=== PATIENT | female | born 1985 | race Caucasian/White ===

== ENCOUNTER 2022-08-25 18:45 | Emergency (ER) | payer BC, MEDICAID, SELFPAY ==
[2022-08-25 19:32] VITALS: BP 121/105; PULSE 70; RESP 14; TEMP 37.3; O2SAT 100
--- NOTE | 2022-08-25 20:26 | ED.GENADULT ---
HPI - General Adult General Chief complaint: Urogenital-Female Stated complaint: Vaginal Problem Source: patient Mode of arrival: ambulatory Limitations: no limitations History of Present Illness HPI narrative: Patient presents for evaluation of vaginal itching for the last 3-4 weeks. She is concerned that she may have an STI. She states while she was to her ex- last year, he informed her he tested positive for trich. It sounds like she had some STI testing at that time but does not believe that she received testing for trich. In the spring she had a trich test which was positive and she was treated with flagyl at that time. She denies any fever, chills, nausea, vomiting, abdominal pain, vaginal bleeding/discharge. States her LMP was about 25 days ago. She has a hx of irregular menstruation following use of spironolactone. She is no longer on the medication. She is not on contraception. She has a new male sexual partner since the time of her divorce. They do not use condoms regularly. He is asymptomatic. She states she has a hx of HPV. Related Data Home Medications Medication Instructions Recorded Confirmed No Home Medications 08/25/22 08/25/22 Allergies Allergy/AdvReac Type Severity Reaction Status Date / Time doxycycline Allergy Unknown enlarged Verified 08/25/22 19:22 lymph nodes, rash Review of Systems Review of Systems: CONSTITUTIONAL: Denies fever, chills, or sweats. EYES: Denies visual changes, redness, or discharge. ENT: Denies rhinorrhea, congestion, sore throat, or otalgia. CARDIOVASCULAR: Denies chest pain, palpitations, or edema. RESPIRATORY: Denies cough or dyspnea. GASTROINTESTINAL: Denies abdominal pain, nausea, vomiting, or diarrhea. GENITOURINARY: Reports vaginal itching. Denies dysuria or hematuria. SKIN: Denies rash or itching. MUSCULOSKELETAL: Denies back pain, joint pain, or myalgia. NEUROLOGIC: Denies headache, numbness, dizziness, or weakness. PSYCHIATRIC: Denies anxiety or depression. [facility] Past Medical History Medical History (Updated 08/25/22 @ 21:07 by Piter Alan, CHERIE, ) HPV (human papilloma virus) anogenital infection Surgical History Surgical History No pertinent past surgical history Family History Family History Mother Family history non-contributory Social History Social History (Updated 08/25/22 @ 20:32 by Piter Alan [facility], ) Substance use: never Gender identity (if verbalized by the patient): Female Sexual Orientation (if Verbalized by the Patient): Straight or Heterosexual Spiritual care concerns: No Exam Narrative: GENERAL: Well-appearing, well-nourished, and in no acute distress. HEAD: Normocephalic, atraumatic. EYES: PERRLA and EOMI. ENT: Nares clear, no rhinorrhea or epistaxis. Mucous membranes moist. Oropharynx without tonsillar hypertrophy exudate or other lesions. Bilateral TMs pearly thomas nonbulging NECK: Supple. No adenopathy or masses. No carotid bruits or JVD CHEST: Clear to auscultation. No respiratory distress. No wheezes rales or rhonchi HEART: Regular rate and rhythm. No murmur heard. Normal peripheral pulses. ABDOMEN: Soft, nontender, nondistended, normal active bowel sounds. EXTREMITIES: Normal range of motion. No edema. VAGINAL: Exam performed in company of [employer]. No external genital lesions. No adnexal tenderness. No cervical motion tenderness. There are several scattered raised lesions to mucosa of vaginal region. There is a small amount of milky white discharge in vaginal vault. SKIN: Warm, dry, no rash. NEURO: No focal deficits. Alert and oriented x3. PSYCH: Normal mood and affect. Course Course Emergency Course: This is a 37-year-old female who presented requesting STI testing. Discussed risks versus benefits of empiric treatment. P
== END 2022-08-25 21:08 | disposition home or self-care (01) ==
PROVIDERS: Emergency Provider Nurse Practitioner
DX: N76.0 Acute vaginitis (principal); Z11.3 Encounter for screening for infections with a predominantly sexual mode of transmission
CPT/HCPCS: 81003; 81025; 87070; 87086; 87255; 87491; 87591; 87661; 99204; G0463

== ENCOUNTER 2023-03-19 08:01 | Emergency (ER) | payer BC, MEDICAID, SELFPAY ==
--- NOTE | 2023-03-19 08:06 | ED.FEMALEGU ---
HPI - Female Genitourinary General Chief complaint: Urogenital-Female Stated complaint: Poss UTI Time Seen by Provider: 03/19/23 08:07 Source: patient Mode of arrival: ambulatory Limitations: no limitations History of Present Illness HPI Narrative: Patient is a 37-year-old female presents with burning with urination and vaginal itching. The itching has been present for a week, burning with urination for 2 days. History of BV and yeast infections. Patient also states she started her period today. Denies any urgency, frequency, low back pain, fever, chills, nausea, vomiting or diarrhea. Denies any new sexual partners or concern for STD. MD elicited complaint: dysuria Related Data Allergies Allergy/AdvReac Type Severity Reaction Status Date / Time doxycycline Allergy Unknown enlarged Verified 03/19/23 08:17 lymph nodes, rash Review of Systems Review of Systems: All systems reviewed & are unremarkable except as noted in HPI and below Constitutional: Constitutional: Denies chills, Denies fever(s), Denies headache(s), Denies malaise and Denies weakness Eyes: Eyes: Denies change in vision, Denies eye discharge and Denies irritation ENT: Denies otalgia, Denies headache(s), Denies nasal congestion, Denies nasal discharge, Denies sinus pain and Denies sore throat Cardiovascular: Cardiovascular: Denies chest pain, Denies edema, Denies palpitations and Denies dyspnea Respiratory: Respiratory: Denies cough and Denies dyspnea Gastrointestinal: Gastrointestinal: Denies abdominal pain, Denies diarrhea, Denies nausea and Denies vomiting Genitourinary: Genitourinary: Denies hematuria, Denies nocturia, Reports genital pruritis, Reports dysuria, Denies flank pain, Denies urinary urgency and Reports vaginal pruritus Musculoskeletal: Musculoskeletal: Denies back pain and Denies numbness Integumentary/Breasts: Skin/Breast: Denies pruritus and Denies rash Neurologic: Denies headache(s), Denies numbness and Denies weakness Psychiatric: Psychiatric: Reports no additional psychiatric complaints Endocrine: Endocrine: Denies palpitations PMFSH Past Medical History Medical History (Updated 03/19/23 @ 08:27 by Reagan Quispe APRN) HPV (human papilloma virus) anogenital infection Surgical History Surgical History No pertinent past surgical history Family History Family History Mother Family history non-contributory Social History Social History (Updated 08/25/22 @ 20:32 by CHERIE Pacheco, ) Substance use: never Gender identity (if verbalized by the patient): Female Sexual Orientation (if Verbalized by the Patient): Straight or Heterosexual Spiritual care concerns: No Comments At time of signature, agree with nursing past medical, surgical, social and family history. There is no relevant family history pertinent to the presenting complaint. Exam Const: General: cooperative, healthy appearing, comfortable, no acute distress and well nourished Nutritional Appearance: well nourished Orientation/consciousness: patient oriented x3 HENMT: Head: normocephalic and atraumatic Ears: external ears normal Face/Nose/Sinus: Normal external nose present, Normal nares present and normal facial exam Face and sinus: normal facial exam Eyes: General: appearance normal, both eyes and all related structures Pupils: Equal, round and reactive pupils present EOM: EOMs intact bilaterally Neck: Neck: normal visual inspection, full ROM and supple Chest: Chest palpation & inspection: normal inspection of the chest Resp: Effort & Inspection: normal respiratory effort and able to speak in complete sentences Cardio: Rate: regular rate Rhythm: regular rhythm GI: Inspection: normal to inspection GI Palp: No abdominal tenderness and Yes Soft to palpation : General: Yes no CVA tenderness Back/Spin
[2023-03-19 08:10] VITALS: BP 111/80; PULSE 88; RESP 14; TEMP 36.9; O2SAT 100
== END 2023-03-19 08:45 | disposition home or self-care (01) ==
PROVIDERS: Emergency Provider Nurse Practitioner Family; PCP Internal Medicine
DX: N39.0 Urinary tract infection, site not specified (principal); B37.31 Acute candidiasis of vulva and vagina
CPT/HCPCS: 81003; 87086; 99213; G0463

== ENCOUNTER 2023-04-21 08:36 | Emergency (ER) | payer BC, MEDICAID, SELFPAY ==
[2023-04-21 08:44] VITALS: BP 119/87; PULSE 68; RESP 14; TEMP 37; O2SAT 100
--- NOTE | 2023-04-21 09:26 | ED.GENADULT ---
HPI - General Adult General Chief complaint: Urogenital-Female Stated complaint: Std test Source: patient Mode of arrival: ambulatory Limitations: no limitations History of Present Illness HPI narrative: Patient presents requesting additional education regarding vaginal discharge. She indicates she tested positive for Trichomonas while she was 2 years ago. She has since . She had a foul-smelling yellow vaginal discharge at that time. After treatment she has had recurrent episodes of bacterial vaginosis and typically had white vaginal discharge during those episodes. She had a Pap smear on 04/12/2023. She was contacted on Saturday of last week and told that she had Trichomonas. She is given a prescription for Flagyl which she has taken as directed. Her OBGYN also called in prescription for Flagyl for her male sex partner. He went to [facility] to be evaluated and told her that he received his test results today, and was negative for trich. She states they are in a monogamous relationship. She is having difficulty understanding how he is negative for trich while she is positive. LMP now. No urinary symptoms, fever, chills, nausea, vomiting, abdominal pain, low back pain. She does no know if she currently has discharge as she is actively menstruating. Related Data Home Medications Medication Instructions Recorded Confirmed metronidazole 500 mg tablet 500 mg PO DIRECTED 04/21/23 04/21/23 Allergies Allergy/AdvReac Type Severity Reaction Status Date / Time doxycycline Allergy Unknown enlarged Verified 04/21/23 09:02 lymph nodes, rash Review of Systems Review of Systems: CONSTITUTIONAL: Denies fever, chills, or sweats. EYES: Denies visual changes, redness, or discharge. ENT: Denies rhinorrhea, congestion, sore throat, or otalgia. CARDIOVASCULAR: Denies chest pain, palpitations, or edema. RESPIRATORY: Denies cough or dyspnea. GASTROINTESTINAL: Denies abdominal pain, nausea, vomiting, or diarrhea. GENITOURINARY: Denies dysuria or hematuria. SKIN: Denies rash or itching. MUSCULOSKELETAL: Denies back pain, joint pain, or myalgia. NEUROLOGIC: Denies headache, numbness, dizziness, or weakness. PSYCHIATRIC: Denies anxiety or depression. [facility] Past Medical History Medical History (Updated 04/21/23 @ 09:55 by Piter Alan, [facility], ) Bacterial vaginosis HPV (human papilloma virus) anogenital infection Surgical History Surgical History No pertinent past surgical history Family History Family History Mother Family history non-contributory Social History Social History (Updated 04/21/23 @ 09:56 by CHERIE Pacheco, ) Substance use: never Living arrangements: with family Gender identity (if verbalized by the patient): Female Sexual Orientation (if Verbalized by the Patient): Straight or Heterosexual Spiritual care concerns: No Exam Narrative: GENERAL: Well-appearing, well-nourished, and in no acute distress. HEAD: Normocephalic, atraumatic. EYES: PERRLA and EOMI. ENT: Nares clear, no rhinorrhea or epistaxis. Mucous membranes moist. Oropharynx without tonsillar hypertrophy exudate or other lesions. Bilateral TMs pearly thomas nonbulging NECK: Supple. No adenopathy or masses. No carotid bruits or JVD CHEST: Clear to auscultation. No respiratory distress. No wheezes rales or rhonchi HEART: Regular rate and rhythm. No murmur heard. Normal peripheral pulses. ABDOMEN: Soft, nontender, nondistended, normal active bowel sounds. EXTREMITIES: Normal range of motion. No edema. SKIN: Warm, dry, no rash. NEURO: No focal deficits. Alert and oriented x3. PSYCH: Normal mood and affect. Course Course Emergency Course: This is a 37-year-old female who presented with questions regarding recent positive Trichomonas test. It sounds
== END 2023-04-21 09:11 | disposition home or self-care (01) ==
PROVIDERS: Emergency Provider Nurse Practitioner
DX: A59.01 Trichomonal vulvovaginitis (principal)
CPT/HCPCS: 99211; G0463

== ENCOUNTER 2023-05-07 01:45 | Day surgery (SDC) | payer OTHER, SELFPAY ==
[2023-04-26 13:43] VITALS: BMI 22.1
--- NOTE | 2023-04-26 13:44 | SUR.PREOP ---
Report to the Outpatient Waiting Room, entrance under the green pavilion located off [facility], at time _1200 on date __05/07/23 . Planned Procedure Time: _1400 . Time changes happen often and if your time is changed the preop area will call you the afternoon before. - You and your visitor will be asked to self-screen and do not enter if you have any COVID symptoms. - A mask is optional within the hospital at this time. Patients may have clear liquids (water, carbonated beverages, clear teas, apple juice) until 3 hours prior to surgery with a maximum of 20 ounces. - No food from midnight until time of surgery - Infants may have breast milk until 4 hours before surgery, formula 6 hours prior to surgery. - Children will be allowed to drink immediately following surgery. If applicable, please bring a bottle or sippy cup to assist with drinking. Juice, water, soda, and popsicles are readily available. For infants on formula, please bring formula the day of surgery. Pacifiers are allowed. Take the following medications with a SIP of water the morning of surgery: ___n/a DO NOT STOP ANY OF YOUR OTHER PRESCRIPTION MEDICATIONS PRIOR TO SURGERY ?EXCEPT THE FOLLOWING Medications to discontinue per physician ___vitamin,probiotic bring albuterol inhaler with you am of surgery Date to take last dose____05/04/23 Please no make-up, nail japanese, hairspray, perfume, deodorant, or body powder the day of surgery. No jewelry (including any body piercings) or valuables the day of surgery, leave them at home. Please take a shower or bath the night before, or the morning of, surgery with an antibacterial soap. Wear comfortable, loose fitting clothing. Children are encouraged to wear pajamas. - Jewelry must be removed prior to entering the operating room. Rings and piercings that are not removed may be cut off. - The hospital will not accept responsibility for valuables. - Please leave all valuables, including medications, at home the day of surgery. If you are going home after surgery, a licensed school bus driver/custodian must drive you home. - NO public transportation without another adult if you receive anesthesia. - We recommend that an adult stay with you for 24 hours following discharge. - We also recommend that you do not drive, make important decision, drink alcoholic beverages, or take any drugs that were not prescribed by your health care provider for at least 24 hours after your discharge time. For Pediatric surgeries, we recommend two adults accompany the child home. Follow any additional instructions given to you from your surgeon. If you or anyone in your household have experienced Covid symptoms in the past week, please notify your surgeon or the nurse liaison at the phone number below for possible testing. Telephone instructions given to ivan arboleda and asked if any additional questions and then verbalized understanding. Patient advised to call surgeon office or pre surgery nurse liaison [phone] if any additional questions.
[2023-05-07] VITALS (8 sets, daily range): BP systolic 101–143; BP diastolic 76–89; PULSE 66–93; RESP 17–21; TEMP 36.5–37.1; O2SAT 100
[2023-05-07] MEDS: LACTATED RINGERS 1,000 ML 30 ML IV CONT ×2 (10:43→14:14)
--- NOTE | 2023-05-07 12:37 | P.OP_ITS ---
Procedure Note - Detailed Date of Procedure 05/07/23 Pre-op Diagnosis micromastia Post-op Diagnosis Same Procedure Performed Bilateral augmentation mammaplasty Surgeon Adam Ruggiero MD Anesthesia General Findings Bilateral Padma Graham Soft Touch 310cc Dual plane 1 Right - REF# [id number] SN [id number] Left - REF# [id number] SN [id number] Description of Procedure She is here today for bilateral breast augmentation. Previously and again today the risks, benefits, alternatives were discussed in extensive detail. I wanted her to be very realistic about the risks involved as well as expectations. We discussed aftercare and what to monitor for. Made sure answered all of her questions to her satisfaction today and consent was obtained. Marked in the preoperative holding area with their verification. The patient was taken to the operating room placed supine on the operating table. Anesthesia was provided by anesthesiology. A surgical time-out was taken. We cleansed the skin and 1% lidocaine and 0.25% Marcaine with epinephrine was used anesthetize a s a field block. She was prepped and draped in a standard sterile fashion. Tegaderm nipple Garcia were placed. A 15 blade used to make an incision along the inframammary fold. Dissection was continued at 45 degree angle until the chest wall as identified. I incised the pectoralis major along its inferior border and completely released the inferior border leaving the medial border intact. I created a subpectoral pocket in the appropriate dimensions based on our preoperative planning for the implant. I then copiously irrigated with saline solution and verified a strict hemostasis. Next the use a triple antibiotic and Betadine containing solution to irrigate the pocket. I washed my gloves with the triple antibiotic and Betadine solution. We washed the implant immediately upon opening it with this solution and only opened it when we needed it. I used implant funnel and no-touch technique. The implant was introduced into the pocket using the funnel. Having verified positioning of the implant this was closed using 2-0 PDS followed by 3-0 Monocryl in a running subcuticular 4-0 Monocryl followed by tissue glue. Fluffs and surgical bra were placed. Patient was awoke and taken to PACU without difficulty. All instrument sponge counts were correct at the end of the case. Estimated Blood Loss 25 Drains No Packing No Pathology None sent Complications No immediate complications Condition Stable Disposition PACU
--- NOTE | 2023-05-07 12:37 | WPDHPUPDATE1 ---
History and Physical Update Update Date/Time: 05/07/23 12:37 History and Physical has been reviewed, including an updated exam of the patient. There are NO changes in the patient's condition. Risks, benefits, and alternatives have been discussed and questions answered. Patient agrees to proceed with procedure.
--- NOTE | 2023-05-07 12:48 | WPDANESEPPF ---
Anes - Initial Pre Proc Eval Procedure: Operation Date: 05/07/23 12:30 Proposed Procedures p Bilateral Breast Augmentation - Adam Ruggiero MD Date/Time: 05/07/23 12:48 Surgeon: Adam Ruggiero MD Pre Op Diagnosis: micromastia Patient Data Age: 38 Gender: F Height: 1.52 m Weight: 51 kg Last Vital Signs Temp 98.7 F 05/07/23 10:28 Pulse 71 05/07/23 10:28 Resp 18 05/07/23 10:28 BP 101/76 05/07/23 10:28 Pulse Ox 100 05/07/23 10:28 O2 Del Method Room Air 05/07/23 10:28 Allergies Allergy/AdvReac Type Severity Reaction Status Date / Time doxycycline Allergy Intermediate enlarged Verified 05/07/23 10:26 lymph nodes, rash moxifloxacin Allergy Intermediate Hives Verified 05/07/23 10:26 Home Medications Medication Instructions Recorded Confirmed Type Probiotic 1 cap PO DAILY 04/26/23 05/07/23 History albuterol 90 mcg/actuation aerosol 90 mcg inhalation PRN 04/26/23 05/07/23 History inhaler multivitamin 1 tablet PO DAILY 04/26/23 05/07/23 History Patient hx anesthesia problems: none Family hx anesthesia problems: none Results Review: All pre-operative results and documents have been reviewed as part of the pre-operative evaluation. [facility] Past Medical History Medical History (Updated 04/22/23 @ 00:01 by Naresh Lewis) Bacterial vaginosis HPV (human papilloma virus) anogenital infection Surgical History Surgical History No pertinent past surgical history Family History Family History Mother Family history non-contributory Social History Social History (Updated 04/21/23 @ 09:56 by CHERIE Pacheco, ) Smoking status: Never smoker Alcohol intake: current Alcohol use details: 2 drinks a month Substance use: never Living arrangements: alone Gender identity (if verbalized by the patient): Female Sexual Orientation (if Verbalized by the Patient): Straight or Heterosexual Spiritual care concerns: No Anes - Eval Final PreProcedure Day of Procedure 05/07/23 12:49 Patient weight: normal Heart: regular rate and rhythm Lungs: clear to auscultation Airway: Mallampati scale class II Neurological: alert and oriented Last oral intake: >/= 8 hours ASA classification: II Emergent: no Anesthetic plan: proceed Anesthesia type and monitoring: general LMA and standard monitoring Results Review: All pre-operative results and documents have been reviewed as part of the pre-operative evaluation. Informed Consent: The patient's anesthetic plan and its attendant risks and benefits were discussed with the patient/family/POA. Questions were solicited and answers provided to the satisfaction of the patient/family/POA.
[2023-05-07] MEDS: TRANEXAMIC ACID 1,000MG/ISO100 1,000 MG/100 ML BAG 200 MG IVPB (13:19)
[2023-05-07] MEDS: ceFAZolin 2 GM/D5W 50 ML 2 GM/50 ML BAG IVPB (13:20)
[2023-05-07] MEDS: fentaNYL CITRATE INJ (*CRX) 100 MCG/2 ML VIAL 25 MCG IV PUSH ×4 (14:38→15:04)
[2023-05-07] MEDS: ONDANSETRON INJ 4 MG/2 ML VIAL IV PUSH (15:56)
[2023-05-07] MEDS: SCOPOLAMINE 1.5 MG PATCH TRANSDERM (16:29)
== END 2023-05-07 16:46 | disposition home or self-care (01) ==
PROVIDERS: Visit Provider Surgery Plastic and Reconstructive Surgery
PROC: (CPT 19325; principal; 2023-05-07 12:30)
DX: Z41.1 Encounter for cosmetic surgery (principal); N64.82 Hypoplasia of breast; Z79.4 Long term (current) use of insulin
CPT/HCPCS: 19325; A9270; J0690; J1100; J1170; J1580; J2250; J2405; J2704; J3010; J7120

== ENCOUNTER 2023-05-11 08:58 | Emergency (ER) | payer BC, MEDICAID, SELFPAY ==
[2023-05-11 09:04] VITALS: BP 109/81; PULSE 94; RESP 20; TEMP 36.9; O2SAT 99
--- NOTE | 2023-05-11 10:09 | ED.FEMALEGU ---
HPI - Female Genitourinary General Chief complaint: Urogenital-Female Stated complaint: STD Exposure Time Seen by Provider: 05/11/23 10:00 Source: patient, RN notes reviewed and old records reviewed Mode of arrival: ambulatory Limitations: no limitations History of Present Illness HPI Narrative: 38 year old female who presents to [facility] care with complaints of vaginal itching and some white thick discharge for awhile. Patient reports that she has history of BV and HPV. Patient reports that she was getting pap tests every 3 months for a while but have now been normal for awhile stating HPV dormant. Patient reports that she was treated for BV recently with 2 antibiotics and doesn't think present symptoms are like when she has had BV in past. Patient reports that she thought maybe yeast infection and took Monistat which she states mad vaginal area feel more irritated. Patient denies any urinary symptoms no urinary burning, urgency or frequency. MD elicited complaint: vaginal discharge and other (vaginal itching) Pertinent past history: other (BV and HPV) Location of symptoms: vaginal Severity scale (1-10): 2 Vaginal discharge: white and other (itchy) Vaginal bleeding: none Treatment prior to arrival: other (monistat) Sexual activity: Yes Related Data Home Medications Medication Instructions Recorded Confirmed Probiotic 1 cap PO DAILY 04/26/23 05/07/23 albuterol 90 mcg/actuation aerosol 90 mcg inhalation PRN 04/26/23 05/07/23 inhaler multivitamin 1 tablet PO DAILY 04/26/23 05/07/23 oxycodone-acetaminophen 5 mg-325 tablet 05/11/23 05/11/23 mg tablet Allergies Allergy/AdvReac Type Severity Reaction Status Date / Time doxycycline Allergy Intermediate enlarged Verified 05/07/23 10:26 lymph nodes, rash moxifloxacin Allergy Intermediate Hives Verified 05/07/23 10:26 Review of Systems Review of Systems: CONSTITUTIONAL: Denies fever, chills, or sweats. CARDIOVASCULAR: Denies chest pain, palpitations, or edema. RESPIRATORY: Denies cough or dyspnea. GASTROINTESTINAL: Denies abdominal pain, nausea, vomiting, or diarrhea. GENITOURINARY: Reports no dysuria, frequency, urgency. Denies flank pain or hematuria.Reports thick white vaginal discharge with vaginal itching SKIN: Denies rash or itching. MUSCULOSKELETAL: Denies back pain or myalgia. Denies CVA tenderness NEUROLOGIC: Denies headache All systems reviewed & are unremarkable except as noted in HPI and below PMFSH Past Medical History Medical History (Updated 05/12/23 @ 00:01 by Naresh Lewis) Bacterial vaginosis HPV (human papilloma virus) anogenital infection Surgical History Surgical History (Updated 05/13/23 @ 08:13 by Gwen Morales NP) History of breast augmentation Family History Family History Mother Family history non-contributory Social History Social History Smoking status: Never smoker Alcohol intake: current Alcohol use details: 2 drinks a month Substance use: never Living arrangements: alone Gender identity (if verbalized by the patient): Female Sexual Orientation (if Verbalized by the Patient): Straight or Heterosexual Spiritual care concerns: No Comments At time of signature, agree with nursing past medical, surgical, social and family history. There is no relevant family history pertinent to the presenting complaint Exam Narrative: GENERAL: Well-appearing, well-nourished, and in no acute distress. HEAD: Normocephalic, atraumatic. NECK: Supple.no lymphadenopathy CHEST: Clear to auscultation. No respiratory distress. SAO2 99% on room air HEART: Regular rate and rhythm. No murmur heard. Normal peripheral pulses. ABDOMEN: Soft, nontender, nondistended, normal active bowel sounds. No CVA tenderness, vaginal discharge white thick with itching see vaginal exam EXTREMITIES: Normal range of motion. N
== END 2023-05-11 10:40 | disposition home or self-care (01) ==
PROVIDERS: Emergency Provider Registered Nurse; PCP Obstetrics & Gynecology Gynecology
DX: L29.2 Pruritus vulvae (principal); N89.8 Other specified noninflammatory disorders of vagina
CPT/HCPCS: 87070; 87491; 87591; 87661; 99213; 99214; G0463

== ENCOUNTER 2024-02-15 14:20 | Emergency (ER) | payer BC, SELFPAY ==
[2024-02-15 14:26] VITALS: BP 141/87; PULSE 69; RESP 18; TEMP 37.6; O2SAT 100
--- NOTE | 2024-02-15 14:41 | ED.GENADULT ---
HPI - General Adult General Chief complaint: Urogenital-Female Stated complaint: std testing Source: patient, RN notes reviewed and old records reviewed Mode of arrival: ambulatory Limitations: no limitations History of Present Illness HPI narrative: 38-year-old female presents to [facility] requesting STD testing. Patient states approximately 3 weeks ago she was having intercourse when the condom broke. Patient states took Plan B and had her menstual since so she is not concerned for . Patient states wanting STD and BV testing because last time she used tampons it was painful to answer. Patient states at around about before. Patient denies vaginal discharge, the patient denies urinary symptoms. Related Data Home Medications Medication Instructions Recorded Confirmed Probiotic 1 cap PO DAILY 04/26/23 05/07/23 multivitamin 1 tablet PO DAILY 04/26/23 05/07/23 magnesium 02/15/24 Allergies Allergy/AdvReac Type Severity Reaction Status Date / Time doxycycline Allergy Intermediate enlarged Verified 02/15/24 15:03 lymph nodes, rash moxifloxacin Allergy Intermediate Hives Verified 02/15/24 15:03 Review of Systems Constitutional: Constitutional: Reports no additional constitutional complaints, Denies body ache(s), Denies chills, Denies fatigue, Denies fever(s) and Denies headache(s) Eyes: Eyes: Reports no additional eye complaints and Denies blurry vision ENT: Reports system reviewed and no additional complaints, except as documented, Denies vertigo, Denies dizziness, Denies ear discharge, Denies otalgia, Denies facial pain, Denies headache(s), Denies nasal congestion, Denies nasal discharge, Denies sinus pain, Denies sinus pressure and Denies sore throat Cardiovascular: Cardiovascular: Reports no additional cardiovascular complaints, Denies chest pain, Denies chest pain at rest, Denies rapid heart rate and Denies dyspnea Respiratory: Respiratory: Reports no additional respiratory complaints, Denies chest congestion, Denies cough, Denies pain on inspiration, Denies pain with cough and Denies dyspnea Gastrointestinal: Gastrointestinal: Denies abdominal pain, Denies diarrhea, Denies nausea and Denies vomiting Genitourinary: Genitourinary: Reports as per HPI Integumentary/Breasts: Skin/Breast: Denies rash Neurologic: Reports system reviewed and no additional complaints, except as documented, Denies vertigo, Denies dizziness and Denies headache(s) Endocrine: Endocrine: Denies fatigue [facility] Past Medical History Medical History (Updated 02/15/24 @ 15:02 by Maakyla Stark APRN) Bacterial vaginosis HPV (human papilloma virus) anogenital infection Surgical History Surgical History (Updated 05/13/23 @ 08:13 by Gwen Morales NP) History of breast augmentation Family History Family History Mother Family history non-contributory Social History Social History Smoking status: Never smoker Alcohol intake: current Alcohol use details: 2 drinks a month Substance use: never Living arrangements: alone Gender identity (if verbalized by the patient): Female Sexual Orientation (if Verbalized by the Patient): Straight or Heterosexual Spiritual care concerns: No Comments At the time of my signature, I reviewed and agree with the nursing past medical, surgical, social, and family history. There is no relevant family history pertinent to the patient complaint. Exam Const: General: cooperative, healthy appearing, no acute distress and well nourished Nutritional Appearance: well nourished Orientation/consciousness: patient oriented x3 Limitations: no limitations HENMT: Head: normal to inspection and normocephalic Ears: external ears normal Face/Nose/Sinus: normal facial exam Face and sinus: normal facial exam Mouth: Yes Normal oral and palatal mucosa present, Yes grayson
--- NOTE | 2024-02-15 15:04 | PC.NURSE ---
pelvic exam done by inpatient services rn with xpc tech at bedside. gc/chlam, trich, and bv swab done.
[2024-02-15 17:32] LABS: Trichomonas Vag PCR NOT DETECTED (NOT DETECTE)
[2024-02-15 17:55] LABS: Chlamydia trachomatis NOT DETECTED (NOT DETECTE); Neisseria gonorrhoeae PCR NOT DETECTED (NOT DETECTE)
[2024-02-18 00:53] LABS: Bacterial Vaginosis NEGATIVE (NEGATIVE)
== END 2024-02-15 15:06 | disposition home or self-care (01) ==
PROVIDERS: Emergency Provider Registered Nurse; PCP Obstetrics & Gynecology Gynecology
DX: Z20.2 Contact with and (suspected) exposure to infections with a predominantly sexual mode of transmission (principal)
CPT/HCPCS: 81513; 87491; 87591; 87661; 99214; G0463

== ENCOUNTER 2024-03-19 11:08 | Emergency (ER) | payer BC, SELFPAY ==
--- NOTE | 2024-03-19 11:19 | ED.GENADULT ---
HPI - General Adult General Chief complaint: Urogenital-Female Stated complaint: poss yeast infection Time Seen by Provider: 03/19/24 11:19 Source: patient, RN notes reviewed and old records reviewed Mode of arrival: ambulatory Limitations: no limitations History of Present Illness HPI narrative: 38-year-old female to [facility] for complaint superficial vaginal discomfort and itching for 1.5 weeks. patient denies discharge or foul odor. Patient reports treating at home with boric acid suppository and fit just still cream without relief. Patient denies urinary changes, fever, abdominal pain, excoriations. Patient endorses new sexual partner with unprotected intercourse. Related Data Allergies Allergy/AdvReac Type Severity Reaction Status Date / Time doxycycline Allergy Intermediate enlarged Verified 02/15/24 15:03 lymph nodes, rash moxifloxacin Allergy Intermediate Hives Verified 02/15/24 15:03 Review of Systems Review of Systems: All systems reviewed & are unremarkable except as noted in HPI and below Constitutional: Constitutional: Reports no additional constitutional complaints Eyes: Eyes: Reports no additional eye complaints ENT: Reports system reviewed and no additional complaints, except as documented Cardiovascular: Cardiovascular: Reports no additional cardiovascular complaints, Denies chest pain and Denies dyspnea Respiratory: Respiratory: Reports no additional respiratory complaints, Denies cough and Denies dyspnea Genitourinary: Genitourinary: Reports as per HPI, Denies nocturia, Denies genital lesions, Denies flank pain, Denies urinary incontinence, Denies urinary hesitancy, Denies urinary urgency, Denies vaginal odor and Reports vaginal pruritus ( And discomfort) Musculoskeletal: Musculoskeletal: Reports no additional musculoskeletal complaints Neurologic: Reports system reviewed and no additional complaints, except as documented Psychiatric: Psychiatric: Reports no additional psychiatric complaints [facility] Past Medical History Medical History Bacterial vaginosis HPV (human papilloma virus) anogenital infection Surgical History Surgical History History of breast augmentation Family History Family History Mother Family history non-contributory Social History Social History Smoking status: Never smoker Alcohol intake: current Alcohol use details: 2 drinks a month Substance use: never Living arrangements: alone Gender identity (if verbalized by the patient): Female Sexual Orientation (if Verbalized by the Patient): Straight or Heterosexual Spiritual care concerns: No Comments At the time of my signature, I reviewed and agree with the nursing past medical, surgical, social, and family history. There is no relevant family history pertinent to the patient complaint. Exam Const: General: cooperative, healthy appearing, comfortable, no acute distress, alert and well nourished Nutritional Appearance: well nourished Orientation/consciousness: patient oriented x3 Limitations: no limitations HENMT: Head: normal to inspection Ears: external ears normal Face/Nose/Sinus: Normal external nose present, Normal nares present, normal facial exam, No erythema and No edema Face and sinus: normal facial exam, no erythema and no edema Mouth: Yes Normal oral and palatal mucosa present Eyes: General: appearance normal, both eyes and all related structures Neck: Neck: normal visual inspection, full ROM and no meningeal signs Lymphatic: no lymphadenopathy noted and no lymphedema noted Chest: Chest palpation & inspection: normal inspection of the chest Resp: Effort & Inspection: normal respiratory effort and able to speak in complete sentence
[2024-03-19 11:20] VITALS: BP 111/77; PULSE 100; RESP 16; TEMP 37.1; O2SAT 100
[2024-03-19 21:25] LABS: Trichomonas Vag PCR NOT DETECTED (NOT DETECTE)
[2024-03-19 21:48] LABS: Chlamydia trachomatis NOT DETECTED (NOT DETECTE); Neisseria gonorrhoeae PCR NOT DETECTED (NOT DETECTE)
== END 2024-03-19 11:53 | disposition home or self-care (01) ==
PROVIDERS: Emergency Provider Nurse Practitioner Family; PCP Internal Medicine
DX: B37.31 Acute candidiasis of vulva and vagina (principal); Z11.3 Encounter for screening for infections with a predominantly sexual mode of transmission
CPT/HCPCS: 87491; 87591; 87661; 99214; G0463